=== PATIENT | male | born 1955 | race Caucasian/White ===

== ENCOUNTER → 2018-12-22 | Outpatient (CLI) | payer OTHER ==
[~2018-12-22] MED LIST: ALBU3IS INH; BROVANA; HYDCHL25 PO; PRED5 PO; PROB500 PO; SIMV40 PO; THEO200ERA PO
== END | disposition home or self-care (01) ==
LOC: LAB SRC 10:39 → LAB SHORT 10:39
DX: J18.9 Pneumonia, unspecified organism (principal); J44.9 Chronic obstructive pulmonary disease, unspecified
CPT/HCPCS: 87070; 87077; 87186; 87205

== ENCOUNTER → 2019-09-19 | Outpatient (CLI) | payer OTHER | END | disposition home or self-care (01) | LOC: LAB SHORT 10:20 → LAB 10:20 | DX: J44.9 Chronic obstructive pulmonary disease, unspecified (principal); E88.01 Alpha-1-antitrypsin deficiency | CPT/HCPCS: 87070; 87077; 87186; 87205 ==

== ENCOUNTER → 2019-09-20 | Outpatient (CLI) | payer OTHER | END | disposition home or self-care (01) | LOC: LAB SHORT 11:13 → LAB 11:13 | DX: J44.9 Chronic obstructive pulmonary disease, unspecified (principal); E88.01 Alpha-1-antitrypsin deficiency | CPT/HCPCS: 87015; 87116; 87206 ==

== ENCOUNTER → 2019-09-21 | Outpatient (CLI) | payer OTHER | END | disposition home or self-care (01) | LOC: LAB SHORT 11:08 → LAB 11:08 | DX: E88.01 Alpha-1-antitrypsin deficiency (principal); J44.9 Chronic obstructive pulmonary disease, unspecified | CPT/HCPCS: 87015; 87116; 87206 ==

== ENCOUNTER → 2020-04-16 | Outpatient (CLI) | payer OTHER | END | disposition home or self-care (01) | LOC: LAB SHORT 12:15 → LAB 12:15 | DX: L08.9 Local infection of the skin and subcutaneous tissue, unspecified (principal) | CPT/HCPCS: 87070; 87205 ==

== ENCOUNTER 2023-01-14 12:50 | Inpatient (IN) | payer OTHER ==
[2023-01-14 13:31] LABS: BASOPHILS ABSOLUTE AUTO 0.06 K/mm3 (0.00-0.23); BASOPHILS PERCENT AUTO 0 % (0-2); EOSINOPHILS ABSOLUTE AUTO 0.03 K/mm3 (0.00-0.68); EOSINOPHILS PERCENT AUTO 0 % (0-6); Hematocrit 36.9 % (37.0-53.0); Hemoglobin 11.8 g/dL (13.5-17.5); IMMATURE GRAN ABSOLUTE AUTO 0.07 K/mm3 (0.00-0.10); IMMATURE GRAN PERCENT AUTO 0 % (0-1); LYMPHOCYTES ABSOLUTE AUTO 0.77 K/mm3 (0.84-5.20); LYMPHOCYTES PERCENT AUTO 4 % (21-46); MONOCYTES ABSOLUTE AUTO 0.96 K/mm3 (0.16-1.47); MONOCYTES PERCENT AUTO 5 % (4-13); Mean Corpuscular HGB 30.4 pg (26.0-34.0); Mean Corpuscular Volume 95 fL (80-100); Mean Platelet Volume 10.1 fL (9.1-12.4); NEUTROPHILS ABSOLUTE AUTO 19.14 K/mm3 (1.96-9.15); NEUTROPHILS PERCENT AUTO 91 % (41-73); Platelet Count 402 K/mm3 (150-400); RDW Coefficient Variation 13.2 % (11.7-14.2); RDW Standard Deviation 46.4 fL (35.1-46.3); Red Blood Cell Count 3.88 M/mm3 (4.30-5.90); White Blood Cell Count 21.03 K/mm3 (4.00-11.30)
[2023-01-14 13:49] LABS: Albumin, Blood 2.8 g/dL (3.4-5.0); Albumin/Globulin Ratio 0.5 (0.8-1.8); Bilirubin, Total 0.5 mg/dL (0.1-1.0); Bun/Creatinine Ratio 16.9 (12.0-20.0); Calcium, Blood 11.6 mg/dL (8.5-10.1); Creatinine, Blood 1.18 mg/dL (0.60-1.20); Globulin, Blood 5.5 g/dL (2.2-4.0); Potassium, Blood 4.2 mmol/L (3.5-5.5); Total Protein, Blood 8.3 g/dL (6.4-8.2)
[2023-01-14] MEDS ORDERED: FAMO20 PO (15:41)
[2023-01-14 16:54] VITALS: BP 159/98
--- NOTE | 2023-01-14 17:02 | NUR ---
PT ARIVED TO THE MEDICAL FLOOR FROM THE ER VIA [facility] A/OX4, PLEASANT AND CATHLEENVE. THE PT WAS ABLE TO TRANSFER FROM THE [facility] WITH MINIMAL ASSISTANCE. THE PT WAS ORIENTED TO THE ROOM LAYOUT AND CALL SYSTEM. CALL LIGHT IN REACH E[facility] [place] AT THE BEDSIDE
[2023-01-14] MEDS ORDERED: AMOCLA500 PO (18:12)
[2023-01-14] MEDS ORDERED: Vitamin D1000 UNI1 PO (18:14)
[2023-01-14] MEDS ORDERED: ASPI81CH PO (18:16)
--- NOTE | 2023-01-14 19:28 | NUR ---
PT IS A/OX3, COOPERATIVE SLIGHTLY [place], PT DENIED ANY CHEST PAIN , SOB, OR N/V. PT WAS GIVEN AN ASPIRIN PER DR. FOX ORDER FOR ELEVATED TROPONIN. TELE ON, PT HAS A EH [place] AT THE BEDSIDE. CALL LIGHT IN REACH. NO OTHER CHANGES NOTICED THIS SHIFT
[2023-01-14 19:58] VITALS: BP 153/89
[2023-01-15 04:20] VITALS: BP 159/98
[2023-01-15 05:00] LABS: BASOPHILS ABSOLUTE AUTO 0.04 K/mm3 (0.00-0.23); BASOPHILS PERCENT AUTO 0 % (0-2); EOSINOPHILS ABSOLUTE AUTO 0.25 K/mm3 (0.00-0.68); EOSINOPHILS PERCENT AUTO 2 % (0-6); Hemoglobin 10.3 g/dL (13.5-17.5); IMMATURE GRAN ABSOLUTE AUTO 0.07 K/mm3 (0.00-0.10); IMMATURE GRAN PERCENT AUTO 1 % (0-1); LYMPHOCYTES ABSOLUTE AUTO 1.52 K/mm3 (0.84-5.20); LYMPHOCYTES PERCENT AUTO 10 % (21-46); MONOCYTES PERCENT AUTO 6 % (4-13); Mean Corpuscular HGB 30.7 pg (26.0-34.0); Mean Corpuscular HGB Conc 31.2 g/dL (31.5-36.5); Mean Corpuscular Volume 99 fL (80-100); Mean Platelet Volume 10.6 fL (9.1-12.4); NEUTROPHILS PERCENT AUTO 81 % (41-73); Platelet Count 309 K/mm3 (150-400); RDW Coefficient Variation 13.1 % (11.7-14.2); RDW Standard Deviation 46.6 fL (35.1-46.3); Red Blood Cell Count 3.35 M/mm3 (4.30-5.90); White Blood Cell Count 14.88 K/mm3 (4.00-11.30)
[2023-01-15 05:43] LABS: Creatinine, Blood 1.47 mg/dL (0.60-1.20); Magnesium, Blood 1.4 mg/dL (1.6-2.4)
--- NOTE | 2023-01-15 06:30 | NUR ---
SHIFT SUMMARY: PT A&O X3 THIS SHIFT. PT COOPERATIVE WITH CARE. NO ACUTE CHANGES WITH PT THIS SHIFT. POTASH FLAKER AT BEDSIDE ENTIRE SHIFT. TELE REMAINS ON IN SINUS RHYHTM. NO C/O PAIN OR N/V. REPEAT TROPONIN AT BEGINNING OF SHIFT WITH A VALUE OF 163. HOSPITALIST AWARE. CALL LIGHT IN REACH. BED IN LOWEST POSITION. WILL CONTINUE TO MONITOR.
[2023-01-15 07:23] VITALS: BP 176/92
[2023-01-15 13:18] VITALS: BP 147/94
[2023-01-15 15:11] VITALS: BP 124/87
--- NOTE | 2023-01-15 17:36 | NUR ---
PT IS A/OX4, COOPERATIVE. THE PT IS UP WITH ASSIST FROM THE FOOD CONSULTANT TO THE BATHROOM. PT HAS CONVERTED TO A- FLUTTER AND BACK TO SINUS RYTHM SEVERAL TIMES THIS AFTERNOON , DR. ROCHA WAS CALLED AND IS AWARE. THE PT DENIES C/P, SOB AND N/V. PT REPORTED A HEADACHE AND WAS MEDICATED WITH TYLENOL FOR THE H/A. CALL LIGHT IN REACH. AT THE BEDSIDE. WILL CONTINUE TO MONITOR AND ASSESS FOR CHANGES
[2023-01-15 19:26] VITALS: BP 141/84
--- NOTE | 2023-01-16 04:56 | NUR ---
SHIFT SUMMARY: PT A&O X4. PT COOPERATIVE WITH CARE. NO ACUTE CHANGES WITH PT THIS SHIFT. TELE IN PLACE RUNNING SINUS RHYTHM. PT WILL HAVE ONE DAY STRESS TEST DONE TODAY. PT HAS BEEN NPO SINCE MIDNIGHT FOR PROCEDURE. GARAGE LABORER AT BEDSIDE DURING SHIFT. CALL LIGHT IN REACH. BED IN LOWEST POSITION. WILL CONTINUE TO MONITOR.
[2023-01-16 04:57] VITALS: BP 142/87
[2023-01-16 06:02] LABS: Anion Gap 3 mmol/L (6-16); Blood Urea Nitrogen 26 mg/dL (8-24); Bun/Creatinine Ratio 22.2 (12.0-20.0); CHOL/HDL RATIO 2.1; CO2, Blood 37 mmol/L (21-32); Calcium, Blood 10.2 mg/dL (8.5-10.1); Chloride, Blood 98 mmol/L (98-108); Cholesterol 120 mg/dL (50-200); Creatinine, Blood 1.17 mg/dL (0.60-1.20); Glomerular Filtration Rate 69 (60-); Glucose, Blood 83 mg/dL (70-99); HDL Cholesterol 57 mg/dL (>39); LDL/HDL RATIO 0.8; Low Density Lipoprotein Chol 48 mg/dL (0-110); Magnesium, Blood 1.3 mg/dL (1.6-2.4); Sodium, Blood 138 mmol/L (136-145); Triglycerides 76 mg/dL (30-160); Very Low Density Lipoprot Chol 15 mg/dL (6-32)
[2023-01-16 07:35] VITALS: BP 149/84
--- NOTE | 2023-01-16 11:42 | NUR ---
LEXISCAN 0.4 MG ADMINISTERED IV DURING STRESS TEST.
[2023-01-16 14:57] VITALS: BP 131/83
[2023-01-16] MEDS ORDERED: ZOCOR20 MG PO (15:57)
[2023-01-16] MEDS ORDERED: METO25 PO (15:58)
[2023-01-16] MEDS ORDERED: NEBULIZER INH (16:04)
[2023-01-16] MEDS ORDERED: MAGNESIUM OXID500 MG PO (16:14)
--- NOTE | 2023-01-16 17:18 | NUR ---
PT DISCHARGED THE PT VERBALIZED UNDERSTANDING OF THE DC INSTRUCTIONS. THE PTS PRESCRIPTIONS WERE FAXED TO THE [facility] INSTRUCTED. THE PT WAS TRANSFERED VIA WHEELCHAIR ACCOMPANIED BY THE [facility] SECURITY AND [employer]
[2023-01-18] MEDS ORDERED: MULVITA PO (10:41)
== END 2023-01-16 16:23 | DRG 309 ==
LOC: ER 12:50 → MEDS 15:28
PROVIDERS: Physician Assistant; ADMIT Family Medicine
DX: I48.0 Paroxysmal atrial fibrillation (principal); E87.1 Hypo-osmolality and hyponatremia; N17.9 Acute kidney failure, unspecified; I24.8 Other forms of acute ischemic heart disease; Z66 Do not resuscitate; E83.42 Hypomagnesemia; I48.92 Unspecified atrial flutter; E83.52 Hypercalcemia; D64.9 Anemia, unspecified; J44.9 Chronic obstructive pulmonary disease, unspecified; D72.828 Other elevated white blood cell count; T38.0X5A Adverse effect of glucocorticoids and synthetic analogues, initial encounter; D75.839 Thrombocytosis, unspecified; E78.5 Hyperlipidemia, unspecified; I10 Essential (primary) hypertension; Z86.718 Personal history of other venous thrombosis and embolism; Z79.01 Long term (current) use of anticoagulants; Z87.19 Personal history of other diseases of the digestive system; Z99.81 Dependence on supplemental oxygen; Z98.890 Other specified postprocedural states; Z87.891 Personal history of nicotine dependence; Z79.51 Long term (current) use of inhaled steroids; Z88.0 Allergy status to penicillin; Z79.899 Other long term (current) drug therapy
CPT/HCPCS: 36415; 71045; 78452; 80048; 80053; 80061; 82306; 83735; 83880; 83970; 84443; 84484; 85025; 93005; 93010; 93017; 93306; 94640; 94664; 94760; 96365; 96372; 96374; 96375; 99285-25; A9270; A9500; G0378; J0280; J1650; J2785; J3475; J7512